=== PATIENT | female | born 1995 | race Two or more races ===

== ENCOUNTER 2017-10-25 18:43 | Emergency (ER) | payer MEDICAID ==
[2017-10-25 19:02] VITALS: BP 100/64; PULSE 70; RESP 18; TEMP 98.3; O2SAT 100
== END 2017-10-25 21:15 | disposition left against medical advice (07) ==
LOC: H.ER 18:43
DX: Z02.89 Encounter for other administrative examinations (principal)

== ENCOUNTER 2018-09-16 22:23 | Emergency (ER) | payer MEDICAID ==
[2018-09-16 22:32] VITALS: RESP 18
[2018-09-16 23:02] LABS: BASO # 0.1 K/uL (0.0-0.2); BASO % 0.7 % (0.0-2.0); EOS # 0.1 K/uL (0.0-0.7); EOS % 1.4 % (0.0-4.0); HEMOGLOBIN 12.6 g/dL (12.0-16.0); LYMPH # 2.9 K/uL (1.0-4.3); LYMPH % 33.8 % (20.0-40.0); MEAN CELL VOLUME 89.1 fl (81.0-99.0); MEAN CORPUSCULAR HGB CONC 33.6 g/dL (33.0-37.0); MEAN PLATELET VOLUME 8.9 fl (7.2-11.7); MONO % 11.7 % (0.0-10.0); NEUT # 4.5 K/uL (1.8-7.0); NEUT % 52.4 % (50.0-75.0); NRBC % 0.1 % (0.0-0.0); RBC 4.21 Mil/uL (3.80-5.20); RED CELL DISTRIBUTION WIDTH 13.2 % (11.5-14.5); WHITE BLOOD COUNT 8.7 K/uL (4.8-10.8)
[2018-09-16 23:12] LABS: BLOOD UREA NITROGEN 15 mg/dl (7-17); GFR NON-AFRICAN AMERICAN > 60
--- NOTE | 2018-09-16 23:52 | ED PDOC ---
HPI: Chest Pain Time Seen by Provider: 09/16/18 22:43 Chief Complaint (Nursing): Chest Pain Chief Complaint (Provider): Chest Pain History Per: Patient History/Exam Limitations: no limitations Onset/Duration Of Symptoms: Days (x3) Quality: Sharp Associated Symptoms: Other (Back pain). denies: Dyspnea Additional Complaint(s): 22 years old female presents to ER for evaluation of sharp midsternal chest pain radiating to back onset 3 days ago. Patient denies cough, fever, shortness of breath, history of asthma, taking anything for pain or pain interfere in everyday life. PMD: Ary Kay Past Medical History Reviewed: Historical Data, Nursing Documentation, Vital Signs Vital Signs: Last Vital Signs Temp 98.2 F 09/16/18 22:29 Pulse 86 09/16/18 22:29 Resp 18 09/16/18 22:29 BP 126/81 09/16/18 22:29 Pulse Ox 99 09/16/18 22:29 Primary Care Provider: Ary Kay - Medical History PMH: No Chronic Diseases Denies: Asthma - Surgical History Surgical History: No Surg Hx - Family History Family History: States: Unknown Family Hx - Social History Current smoker - smoking cessation education provided: No Alcohol: Social Drugs: Denies - Allergies Allergies/Adverse Reactions: Allergies Allergy/AdvReac Type Severity Reaction Status Date / Time No Known Allergies Allergy Verified 09/16/18 22:32 Review of Systems ROS Statement: Except As Marked, All Systems Reviewed And Found Negative Constitutional: Negative for: Fever Cardiovascular: Positive for: Chest Pain (midsternal) Respiratory: Negative for: Cough, Shortness of Breath Musculoskeletal: Positive for: Back Pain Physical Exam - Reviewed Nursing Documentation Reviewed: Yes Vital Signs Reviewed: Yes - Physical Exam Appears: Positive for: Well, No Acute Distress Head Exam: Positive for: ATRAUMATIC, NORMOCEPHALIC Skin: Positive for: Normal Color, Warm, Dry Eye Exam: Positive for: Normal appearance, EOMI, PERRL ENT: Positive for: Normal ENT Inspection Neck: Positive for: Normal, Painless ROM, Supple Cardiovascular/Chest: Positive for: Regular Rate, Rhythm. Negative for: Murmur, Friction Rub Respiratory: Positive for: Normal Breath Sounds. Negative for: Respiratory Distress Gastrointestinal/Abdominal: Positive for: Normal Exam, Soft. Negative for: Tenderness Back: Positive for: Normal Inspection. Negative for: L CVA Tenderness, R CVA Tenderness Extremity: Positive for: Normal ROM. Negative for: Pedal Edema, Swelling Neurological/Psych: Positive for: Awake, Alert, Oriented (x3) - Laboratory Results Result Diagrams: 09/16/18 22:58 09/16/18 22:58 Lab Results: Troponin I < 0.0120 ng/mL (0.00-0.120) 09/16/18 22:58 - ECG O2 Sat by Pulse Oximetry: 99 (RA) Pulse Ox Interpretation: Normal Medical Decision Making Medical Decision Making: Time: 2249 MDM: workup for chest pain --EKG normal --Low suspicion for cardiac or pulmonary etiology --BMP --Troponin --CBC --CXR --Toradol 15 mg IVP 0006 Labs reviewed and unremarkable. CXR unremarkable. Patient will followup with PMD and given Motrin for pain. Return parameters discussed. Scribe Attestation: Documented by Hodan Schmidt acting as a scribe for Bella Payne MD. Provider Scribe Attestation: All medical record entries made by the Scribe were at my direction and personally dictated by me. I have reviewed the chart and agree that the record accurately reflects my personal performance of the history, physical exam, medical decision making, and the department course for this patient. I have also personally directed, reviewed, and agree with the discharge instructions and disposition. Disposition - Clinical Impression Clinical Impression: Atypical chest pain - Patient ED Disposition Is Patient to be Admitted: No - Disposition Disposition: Routine/Home Disposition Time: 00:06 Condition: IMPROVED Additional Instructions: Follow up with primary medical doctor. Take Motrin as needed for pain. Return to the emergency department if you develop difficulty breathing, worsened pain, or other new symptoms. Instructions: Chest Pain That Is Not Caused by the Heart (DC), Chest Pain (DC), Costochondritis (DC) Forms: [employer] (British) Print Language: GREENLANDIC
[2018-09-17 00:36] VITALS: BP 120/80; PULSE 81; TEMP 98; O2SAT 100
--- NOTE | 2018-09-17 08:53 | RAD ---
Date of service: 09/16/2018 HISTORY: cough COMPARISON: No prior. TECHNIQUE: Chest PA and lateral views FINDINGS: LUNGS: No active pulmonary disease. PLEURA: No significant pleural effusion identified. No pneumothorax apparent. CARDIOVASCULAR: No aortic atherosclerotic calcification present. Dextroscoliosis. No pulmonary vascular congestion. OSSEOUS STRUCTURES: No significant abnormalities. VISUALIZED UPPER ABDOMEN: Normal. OTHER FINDINGS: None. IMPRESSION: No active disease.
== END 2018-09-17 00:10 | disposition home or self-care (01) ==
LOC: H.ER 22:23
DX: R07.9 Chest pain, unspecified (principal)
CPT/HCPCS: 71046; 80048; 81025; 84484; 85025; 96374; 99284; J1885